=== PATIENT | male | born 1995 | race Hispanic/Latino ===

== ENCOUNTER 2021-01-22 20:01 | Emergency (ER) | payer OTHER ==
[~2021-01-22] VITALS: Ht 170.2 cm; Wt 83.8 kg
[2021-01-22] MEDS ORDERED: ALBU83IN INH (20:11)
[2021-01-22] MEDS ORDERED: CETI5SOL3 PO (20:11)
[2021-01-22 23:02] VITALS: BP 117/62
== END 2021-01-22 23:10 | disposition home or self-care (01) ==
LOC: M ED 20:01
DX: J02.8 Acute pharyngitis due to other specified organisms (principal)